=== PATIENT | female | born 1995 | race Hispanic/Latino ===

== ENCOUNTER 2019-02-04 13:50 | Observation (INO) | payer MEDICAID ==
[~2019-02-04] VITALS: Ht 149.9 cm; Wt 83.9 kg
[2019-02-04 14:15] LABS: APPEARANCE,URINE CLEAR (CLEAR); BILIRUBIN,URINE SMALL (NEGATIVE); COLOR,URINE YELLOW (YELLOW); GLUCOSE, URINE (UA) NEGATIVE (NEGATIVE); KETONES,URINE >=80 mg/dL (NEGATIVE); LEUKOCYTE ESTERASE ,URINE NEGATIVE (NEGATIVE); NITRATE,URINE NEGATIVE (NEGATIVE); OCCULT BLOOD,URINE NEGATIVE (NEGATIVE); PROTEIN,URINE TRACE mg/dL (NEGATIVE)
[2019-02-04 14:49] LABS: BACTERIA,URINE Few /HPF (None Seen); RBC,URINE 0-1 /HPF (0-1); SQUAMOUS EPITHELIAL CELL,UR Few /HPF (0-2); WBC,URINE 0-1 /HPF (0-1)
[2019-02-04 14:50] LABS: MUCUS,URINE Few LPF (None Seen)
[2019-02-04] MEDS ORDERED: ONDANSETRON HCL 4 MG/2 ML VIAL ONE (15:26)
[2019-02-04] MEDS ORDERED: ONDANSETRON HCL 4 MG/2 ML VIAL IVP PRN (15:30)
[2019-02-04] MEDS ORDERED: DEXTROSE 5 %-0.45 % NACL 1,000 ML IV ONE (15:45)
[2019-02-04] MEDS ORDERED: LACTATED RINGERS 1000ML IV SCH (15:45)
[2019-02-04] MEDS ORDERED: LACTATED RINGERS 1000ML 1,000 ML IV SCH (16:45)
== END 2019-02-05 09:35 | disposition home or self-care (01) ==
LOC: LDH 13:50
DX: O30.012 Twin pregnancy, monochorionic/monoamniotic, second trimester (principal); Z3A.19 19 weeks gestation of pregnancy
CPT/HCPCS: 59025; 76857 ×2; 81001; 96374; G0378 ×20; J2405; J7120 ×2; 96360; 96361

== ENCOUNTER 2019-02-12 07:20 | Emergency (ER) | payer MEDICAID ==
[2019-02-12] MEDS ORDERED: CLINDAMYCIN HCL 150 MG CAP ONE (07:47)
[2019-02-12] MEDS ORDERED: ACETAMINOPHEN 325 MG TAB ONE (07:47)
== END 2019-02-12 08:50 | disposition home or self-care (01) ==
LOC: EDH 07:20
DX: L03.011 Cellulitis of right finger (principal)

== ENCOUNTER 2019-03-28 12:03 | Observation (INO) | payer MEDICAID ==
[~2019-03-28] VITALS: Ht 149.9 cm; Wt 86.6 kg
[2019-03-28] MEDS ORDERED: CELESTONE SOLUSPAN 6 MG/ML 5ML VIAL IM SCH (12:30)
[2019-03-28] MEDS ORDERED: PHARMACY COMMUNICATION MISC SCH (12:30)
== END 2019-03-28 12:35 | disposition home or self-care (01) ==
LOC: LDH 12:03
DX: Z34.92 Encounter for supervision of normal pregnancy, unspecified, second trimester (principal); Z3A.26 26 weeks gestation of pregnancy
CPT/HCPCS: 96372; G0378; J0702

== ENCOUNTER 2019-03-29 12:20 | Observation (INO) | payer MEDICAID ==
[~2019-03-29] VITALS: Ht 149.9 cm; Wt 86.6 kg
[2019-03-29] MEDS ORDERED: PHARMACY COMMUNICATION MISC SCH (13:15)
[2019-03-29] MEDS ORDERED: CELESTONE SOLUSPAN 6 MG/ML 5ML VIAL IM ONE (14:20)
== END 2019-03-29 13:00 | disposition home or self-care (01) ==
LOC: LDH 12:53
DX: Z34.92 Encounter for supervision of normal pregnancy, unspecified, second trimester (principal); Z3A.26 26 weeks gestation of pregnancy
CPT/HCPCS: 96372; G0378

== ENCOUNTER 2019-05-17 22:49 | Observation (INO) | payer MEDICAID ==
[2019-05-17 23:26] LABS: BILIRUBIN,URINE Negative (NEGATIVE); COLOR,URINE Dark Yellow (YELLOW); GLUCOSE, URINE (UA) Negative (NEGATIVE); KETONES,URINE Trace mg/dL (NEGATIVE); LEUKOCYTE ESTERASE ,URINE Large (NEGATIVE); NITRATE,URINE Negative (NEGATIVE); OCCULT BLOOD,URINE Negative (NEGATIVE); PH,URINE 6.5 (5.0-8.0); PROTEIN,URINE POS 1+ mg/dL (NEGATIVE)
[2019-05-17 23:27] LABS: APPEARANCE,URINE CLOUDY (CLEAR)
[2019-05-17 23:32] LABS: AMPHET/METH SCREEN,URINE NEGATIVE (NEGATIVE); BARBITURATE SCREEN, URINE NEGATIVE (NEGATIVE); BENZODIAZEPINES SCREEN,URINE NEGATIVE (NEGATIVE); CANNABINOID SCREEN,URINE NEGATIVE (NEGATIVE); COCAINE SCREEN,URINE NEGATIVE (NEGATIVE); OPIATE SCREEN,URINE NEGATIVE (NEGATIVE); PHENCYCLIDINE SCREEN,URINE NEGATIVE (NEGATIVE)
[2019-05-17 23:35] LABS: BACTERIA,URINE Few /HPF (None Seen); RBC,URINE 0-1 /HPF (0-1); SQUAMOUS EPITHELIAL CELL,UR Many /HPF (0-2)
== END 2019-05-18 04:25 | disposition home or self-care (01) ==
LOC: EDH 22:49 → LDH 22:50
DX: O60.03 Preterm labor without delivery, third trimester (principal); Z3A.34 34 weeks gestation of pregnancy
CPT/HCPCS: 80305; 81001; 99284; G0378 ×4

== ENCOUNTER 2019-05-22 17:17 | Observation (INO) | payer MEDICAID ==
[~2019-05-22] VITALS: Ht 149.9 cm; Wt 84.4 kg
[2019-05-22 18:19] LABS: APPEARANCE,URINE CLOUDY (CLEAR); BILIRUBIN,URINE MODERATE (NEGATIVE); COLOR,URINE YELLOW (YELLOW); GLUCOSE, URINE (UA) NEGATIVE (NEGATIVE); KETONES,URINE 40 mg/dL (NEGATIVE); LEUKOCYTE ESTERASE ,URINE MODERATE (NEGATIVE); NITRATE,URINE NEGATIVE (NEGATIVE); OCCULT BLOOD,URINE TRACE-INTACT (NEGATIVE); PH,URINE 6.5 (5.0-8.0); PROTEIN,URINE 30 mg/dL (NEGATIVE)
[2019-05-22] MEDS ORDERED: LACTATED RINGERS 1000ML 1,000 ML IV PRN ×2 (18:24→19:20)
[2019-05-22 18:39] LABS: MEAN CORPUSCULAR HEMOGLOBIN 22.8 pg (27.0-33.0); MEAN CORPUSCULAR HGB CONC 31.6 g/dL (32.0-36.0); MEAN CORPUSCULAR VOLUME 72.2 fL (80-100); NUCLEATED RED BLOOD CELLS 0.1 % (0.0-0.19); PLATELET COUNT (AUTO) 234 K/uL (130-400); RED BLOOD CELL COUNT(AUTO) 3.88 MIL/uL (4.00-5.50); RED CELL DISTRIBUTION WIDTH 19.5 % (11.0-15.5)
[2019-05-22] MEDS ORDERED: CALCIUM GLUCONATE 1 GM/10 ML VIAL IV PRN (19:00)
[2019-05-22] MEDS ORDERED: MAGNESIUM 4GM PREMIX 100ML 100 ML IV SCH (19:00)
[2019-05-22] MEDS ORDERED: AMPICILLIN 2GM+NS 100ML 100 ML IV SCH (19:00)
[2019-05-22] MEDS ORDERED: MAGNESIUM SULFATE 1,000 ML IV ONE (19:00)
[2019-05-22] MEDS ORDERED: MAGNESIUM 4GM PREMIX 100ML 100 ML IV ONE (19:04)
[2019-05-22 19:54] LABS: BACTERIA,URINE Moderate /HPF (None Seen); MUCUS,URINE Rare LPF (None Seen); SQUAMOUS EPITHELIAL CELL,UR Moderate /HPF (0-2)
[2019-05-22 20:07] VITALS: BP 108/64
[2019-05-22 21:29] LABS: AMPHET/METH SCREEN,URINE NEGATIVE (NEGATIVE); BARBITURATE SCREEN, URINE NEGATIVE (NEGATIVE); BENZODIAZEPINES SCREEN,URINE NEGATIVE (NEGATIVE); CANNABINOID SCREEN,URINE NEGATIVE (NEGATIVE); COCAINE SCREEN,URINE NEGATIVE (NEGATIVE); OPIATE SCREEN,URINE NEGATIVE (NEGATIVE); PHENCYCLIDINE SCREEN,URINE NEGATIVE (NEGATIVE)
[2019-05-22] MEDS: AMPICILLIN 1GM+NS 50ML 50 ML IV SCH (23:10)
[2019-05-23] MEDS: AMPICILLIN 1GM+NS 50ML 50 ML IV SCH ×3 (03:10→11:17)
[2019-05-23] MEDS ORDERED: ACETAMINOPHEN 325 MG TAB PO PRN (11:00)
[2019-05-24 07:15] LABS: HEPATITIS Bs ANTIGEN SCREEN P Negative (Negative)
== END 2019-05-23 14:05 | disposition home or self-care (01) ==
LOC: OBSVTOIN 17:17 → LDH 17:17 → INTOOBSV 17:17 → LDH 19:27
DX: O62.9 Abnormality of forces of labor, unspecified (principal); O30.003 Twin pregnancy, unspecified number of placenta and unspecified number of amniotic sacs, third trimester; Z3A.36 36 weeks gestation of pregnancy
CPT/HCPCS: 36415 ×2; 76810; 76815; 80305; 81001; 83735 ×3; 85027; 86592; 86850; 86900; 86901; 87340; 96365; 96366 ×2; 96368; A4314; A4510; A4600; G0378 ×12; J0290 ×5; J3475 ×2; J7120; 76805

== ENCOUNTER 2019-05-29 05:52 | Inpatient (IN) | payer MEDICAID ==
[~2019-05-29] VITALS: Ht 149.9 cm; Wt 90.3 kg
[2019-05-29 08:27] LABS: HEMATOCRIT 28.3 % (36-48); MEAN CORPUSCULAR HEMOGLOBIN 22.9 pg (27.0-33.0); MEAN CORPUSCULAR HGB CONC 31.7 g/dL (32.0-36.0); MEAN CORPUSCULAR VOLUME 72.1 fL (80-100); NUCLEATED RED BLOOD CELLS 0.1 % (0.0-0.19); PLATELET COUNT (AUTO) 219 K/uL (130-400); RED BLOOD CELL COUNT(AUTO) 3.93 MIL/uL (4.00-5.50); RED CELL DISTRIBUTION WIDTH 19.9 % (11.0-15.5)
[2019-05-29] MEDS ORDERED: OXYTOCIN-LR 20 UNITS/1000 ML 1,000 ML IV SCH ×2 (08:30→08:45)
[2019-05-29] MEDS ORDERED: EPHEDRINE SULFATE 50 MG/ML AMPULE IVP PRN (08:30)
[2019-05-29] MEDS ORDERED: OXYTOCIN 10 USP UNITS/ML 20 UNIT in LACTATED RINGERS 1000ML 1,000 ML IV SCH (08:30)
[2019-05-29] MEDS ORDERED: LACTATED RINGERS 500 ML 500 ML IV PRN (08:30)
[2019-05-29] MEDS ORDERED: NALOXONE HCL 0.4 MG/1 ML ML IV PRN (08:30)
[2019-05-29] MEDS ORDERED: MISOPROSTOL 200 MCG TABLET ONE ×2 (08:34→19:44)
[2019-05-29] MEDS ORDERED: OXYTOCIN-LR 20 UNITS/1000 ML 1,000 ML IV ONE (08:35)
[2019-05-29] MEDS ORDERED: ETOMIDATE 2 MG/ML 10 ML VIAL IVP ONE (14:20)
[2019-05-29] MEDS: LACTATED RINGERS 1000ML 1,000 ML IV PRN (21:54)
[2019-05-29] MEDS ORDERED: AMPICILLIN 2GM+NS 100ML 100 ML IV ONE (23:41)
[2019-05-29 23:42] VITALS: BP 119/61
[2019-05-30] MEDS: LACTATED RINGERS 1000ML 1,000 ML IV PRN (02:56)
[2019-05-30] MEDS ORDERED: ROPIVACAINE 0.2% 100ML VIAL 100 ML EP SCH (04:45)
[2019-05-30] MEDS: AMPICILLIN 2GM+NS 100ML 100 ML IV SCH (05:47)
[2019-05-30 08:12] LABS: HEPATITIS Bs ANTIGEN SCREEN P Negative (Negative)
[2019-05-30] MEDS ORDERED: MISOPROSTOL 200 MCG TABLET ONE (11:24)
[2019-05-30] MEDS ORDERED: METHYLERGONOVINE MALEATE 0.2 MG/1 ML ML ONE (11:24)
[2019-05-30] MEDS ORDERED: ROPIVACAINE 0.5% 5MG/ML 30ML IJ ONE (11:29)
[2019-05-30] MEDS ORDERED: LIDOCAINE PF 2% 5ML ABBOJECT ONE (11:32)
[2019-05-30] MEDS ORDERED: ROCURONIUM 10MG/1ML SYR 10 MG/ML ML ONE (11:32)
[2019-05-30] MEDS ORDERED: SUCCINYLCHOLINE 200MG/10ML SYR ONE (11:32)
[2019-05-30] MEDS ORDERED: PROPOFOL 10 MG/ML 20ML VIAL IV ONE (11:32)
[2019-05-30] MEDS ORDERED: FENTANYL CITRATE PF 50 MCG/1 ML 2ML VIAL ONE (11:33)
[2019-05-30] MEDS ORDERED: OXYTOCIN 10 USP UNITS/ML ONE (11:33)
[2019-05-30] MEDS ORDERED: IBUPROFEN 600 MG TABLET ONE (12:12)
[2019-05-30] MEDS ORDERED: DIPH,PERTUSS(ACELL),TET VAC/PF 0.5 ML VIAL IM PRN (12:45)
[2019-05-30] MEDS ORDERED: ACETAMINOPHEN-CODEINE 300/30MG TAB PO PRN (12:45)
[2019-05-30] MEDS ORDERED: ACETAMINOPHEN 325 MG TAB PO PRN (12:45)
[2019-05-30] MEDS ORDERED: LANOLIN 30GM OINTMENT TP PRN (12:45)
[2019-05-30] MEDS ORDERED: WITCH HAZEL 1 PAD TP PRN (12:45)
[2019-05-30] MEDS ORDERED: BENZOCAINE/LANOLIN/ALOE VERA 60 ML AEROSOL TP PRN (12:45)
[2019-05-30 13:40] VITALS: BP 119/74
--- NOTE | 2019-05-30 13:45 | NUR ---
PATIENT ORIENTED TO ROOM. FUNDUS IS FIRM, BLEEDING IS SCANT. EDUCATED PATIENT ON DERMAPLAST SPRAY, TUCKS PADS, AND SITZ BATH. PATIENT STATED THAT SHE DID NOT WANT ANY VISITORS AT THIS TIME. EDUCATED PATIENT ON QUIET TIME FROM [id number]. ADVISED PATIENT TO CALL WITH ANY NEEDS OR CONCERNS OR WHEN AMBULATING FOR THE FIRST TIME. CALL LIGHT LEFT IN REACH.
[2019-05-30] MEDS ORDERED: PNV1TABL17 PO (14:16)
[2019-05-30 16:22] VITALS: BP 114/63
--- NOTE | 2019-05-30 18:18 | NUR ---
PATIENT LEFT UNIT VIA WHEELCHAIR ACCOMPANIED BY NAOMIE VERGARA AND SIGNIFICANT OTHER TO NURSERY.
[2019-05-30 19:07] VITALS: BP 116/69
--- NOTE | 2019-05-30 20:21 | NUR ---
Patient: Patient claimed, " The medication T3 did not work my pain is still the same." Motrin offered prn for pain patient claimed, " I will just call you if I need it." " I want to take a shower first." Informed to call anytime if needed. Patient verbalizes understanding.
--- NOTE | 2019-05-30 20:30 | NUR ---
Peripheral: Peripheral IV saline lock patient claimed IV site hurts when Flush with Saline. Pitocin number 2 bag done, IV discontinued
[2019-05-30] MEDS: DOCUSATE SODIUM 100 MG CAP PO SCH (21:00)
--- NOTE | 2019-05-30 21:15 | NUR ---
Activity: Patient took a shower felt dizzy was sitting in the shower room, made to inhale alcohol swabs. Jovan Montgomery CNA and myself helped patient to go back to bed by wheelchair, dressed and made comfortable in bed. Patient refused Colace claimed , " I had Diarrhea." Refused Motrin, claimed " I feel better after my IV is out and after I took a shower."
[2019-05-30 23:13] VITALS: BP 90/50
[2019-05-30] MEDS: IBUPROFEN 600 MG TABLET PO PRN (23:40)
[2019-05-31 03:17] VITALS: BP 100/59
[2019-05-31] MEDS: AMPICILLIN 2GM+NS 100ML 100 ML IV SCH ×2 (06:00)
[2019-05-31 07:06] LABS: MEAN CORPUSCULAR HEMOGLOBIN 22.3 pg (27.0-33.0); MEAN CORPUSCULAR HGB CONC 29.9 g/dL (32.0-36.0); MEAN CORPUSCULAR VOLUME 74.5 fL (80-100); NUCLEATED RED BLOOD CELLS 0.1 % (0.0-0.19); PLATELET COUNT (AUTO) 141 K/uL (130-400); RED BLOOD CELL COUNT(AUTO) 2.71 MIL/uL (4.00-5.50); RED CELL DISTRIBUTION WIDTH 19.8 % (11.0-15.5); WHITE BLOOD COUNT (AUTO) 15.4 K/uL (4.8-10.8)
[2019-05-31 07:08] LABS: HEMATOCRIT 20.2 % (36-48)
--- NOTE | 2019-05-31 07:15 | NUR ---
Communication: Dr. Alaniz called via Telephone informed of patient Lab result hemoglobin 6.0, hematocrit of 20.2 and the patient felt dizzy last night. Dr. Alaniz response, " OK I'll see her when I do rounds this morning.". No order received.
[2019-05-31 07:32] VITALS: BP 101/56
--- NOTE | 2019-05-31 08:55 | NUR ---
MD DR. CASILLAS ROUNDING ON PATIENT. POC DISCUSSED, NEW ORDERS RECEIVED.
[2019-05-31] MEDS ORDERED: FERROUS SULFATE 325 MG TABLET.DR PO SCH (09:15)
[2019-05-31] MEDS: DOCUSATE SODIUM 100 MG CAP PO SCH ×2 (09:16→20:14)
[2019-05-31] MEDS: IBUPROFEN 600 MG TABLET PO PRN ×2 (09:17→20:14)
[2019-05-31 11:56] VITALS: BP 113/75
--- NOTE | 2019-05-31 13:40 | NUR ---
ACTIVITY PATIENT AMBULATING IN HALLWAY ACCOMPANIED BY SIGNIFICANT OTHER.
[2019-05-31 16:03] VITALS: BP 105/59
[2019-05-31 19:38] VITALS: BP 117/69
[2019-05-31] MEDS: FERROUS SULFATE 325 MG TABLET.DR PO SCH (20:17)
[2019-05-31 23:13] VITALS: BP 102/60
[2019-06-01 03:40] VITALS: BP 97/57
[2019-06-01 07:07] LABS: MEAN CORPUSCULAR HEMOGLOBIN 22.7 pg (27.0-33.0); MEAN CORPUSCULAR VOLUME 73.2 fL (80-100); NUCLEATED RED BLOOD CELLS 0.1 % (0.0-0.19); PLATELET COUNT (AUTO) 179 K/uL (130-400); RED BLOOD CELL COUNT(AUTO) 2.59 MIL/uL (4.00-5.50); RED CELL DISTRIBUTION WIDTH 19.5 % (11.0-15.5); WHITE BLOOD COUNT (AUTO) 11.7 K/uL (4.8-10.8)
[2019-06-01 07:32] LABS: HEMATOCRIT 18.9 % (36-48)
[2019-06-01 07:34] VITALS: BP 99/53
--- NOTE | 2019-06-01 08:15 | NUR ---
DR. CASILLAS ROUNDED AND WAS MADE AWARE OF HEMOGLOBIN ON PATIENT AND PATIENT DENIES DIZZINESS AND HAS A PULSE IN 70s. DR. CASILLAS SPOKE TO PATIENT AND PATIENT DENIES ANY SYMPTOMS OF ANEMIA AND WAS INSTRUCTED TO TAKE IRON PRESCRIBED AND TO SEE HIM IN ONE WEEK FOR A REPEAT OF CBC. PATIENT VERBALIZED UNDERSTANDING. VAGINAL BLEEDING IS SMALL TO SCANT.
[2019-06-01] MEDS: FERROUS SULFATE 325 MG TABLET.DR PO SCH (08:46)
[2019-06-01] MEDS: DOCUSATE SODIUM 100 MG CAP PO SCH (08:46)
[2019-06-01] MEDS: IBUPROFEN 600 MG TABLET PO PRN (08:49)
[2019-06-01 11:21] VITALS: BP 106/65
--- NOTE | 2019-06-01 11:45 | NUR ---
DISCHARGE INSTRUCTIONS GIVEN AND PATIENT VERBALIZED UNDERSTANDING INSTRUCTIONS GIVEN ON IRON RICH DIET AND TAKING IRON AFTER DISCHARGE TWICE DAILY WITH ORANGE JUICE. OR VITAMIN C CONTAINING BEVERAGE OR FOOD. PATIENT ALSO INSTRUCTED TO CONTINUE TAKING HER VITAMINS AND VERBALIZED UNDERSTANDING.
--- NOTE | 2019-06-01 12:00 | NUR ---
WENT TO NURSERY TO VISIT AND FEED BABIES PRIOR TO GOING HOME.
== END 2019-06-01 13:30 | disposition home or self-care (01) | DRG 560 ==
LOC: LDH 07:34 → WSH 05-30 13:40
PROC: 10E0XZZ Delivery of Products of Conception, External Approach (ICD-10-PCS; principal; 2019-05-30)
PROC: 0W8NXZZ Division of Female Perineum, External Approach (ICD-10-PCS; 2019-05-30)
PROC: 00HU33Z Insertion of Infusion Device into Spinal Canal, Percutaneous Approach (ICD-10-PCS; 2019-05-30)
PROC: 3E0R3BZ Introduction of Anesthetic Agent into Spinal Canal, Percutaneous Approach (ICD-10-PCS; 2019-05-30)
DX: O30.003 Twin pregnancy, unspecified number of placenta and unspecified number of amniotic sacs, third trimester (principal); Z37.2 Twins, both liveborn; O72.1 Other immediate postpartum hemorrhage; Z3A.36 36 weeks gestation of pregnancy; Z83.3 Family history of diabetes mellitus
CPT/HCPCS: 36415; 76815; 85027; 86592; 86850; 86900; 86901; 87340; 88307; A4314; G0378; J0290; J0330; J2001; J2210; J2590; J2704; J2795; J3010; J3490; J7120